=== PATIENT | male | born 1995 | race Hispanic/Latino ===

== ENCOUNTER 2018-09-22 10:39 | Emergency (ER) | payer BC ==
[2018-09-22] MEDS ORDERED: MAGNE/ALUM HYDROXD 30 ML UCUP ONE (13:09)
[2018-09-22] MEDS ORDERED: KETOROLAC 30 MG/ML INJ ONE (13:09)
[2018-09-22] MEDS ORDERED: LIDOCAINE VISCOUS 2% SOLN 15 ML UDC ONE (13:09)
[2018-09-22] MEDS ORDERED: PEN G BENZ LA 2.4 MU/4 ML SYRINGE IM ONE (13:14)
--- NOTE | 2018-09-22 13:40 | ER ---
Nurse's Notes [facility] Name: Raz Reeves Age: 23 yrs Sex: Male : 1995 Arrival Date: 09/22/2018 Time: 10:46 Bed 11 Private MD: Diagnosis: Streptococcal pharyngitis Presentation: 09/22 11:03 Presenting complaint: Patient states: Swollen tonsils, sore throat for the past 2 days aj1 Patient states "I know my tonsils need to be removed but now its affecting my ears". Transition of care: patient was not received from another setting of care. Onset of symptoms was September 20, 2018. Risk Assessment: Do you want to hurt yourself or someone else? Patient reports no desire to harm self or others. Initial Sepsis Screen: Does the patient meet any 2 criteria? No. Patient's initial sepsis screen is negative. Does the patient have a suspected source of infection? No. Patient's initial sepsis screen is negative. Care prior to arrival: None. 11:03 Method Of Arrival: Ambulatory aj1 11:03 Acuity: MUKESH 4 aj1 Triage Assessment: 11:06 General: Appears in no apparent distress. uncomfortable, Behavior is calm, cooperative, aj1 appropriate for age. Pain: Complains of pain in left aspect of posterior pharynx and right aspect of posterior pharynx Pain currently is 6 out of 10 on a pain scale. EENT: Throat is reddened has enlarged tonsils bilaterally. Neuro: Level of Consciousness is awake, alert, obeys commands. Cardiovascular: Patient's skin is warm and dry. Respiratory: Airway is patent Respiratory effort is even, unlabored, Respiratory pattern is regular, symmetrical, Denies shortness of breath. Historical: - Allergies: 11:06 No Known Allergies; aj1 - Home Meds: 11:06 None [Active]; aj1 - PMHx: 11:06 None; aj1 - PSHx: 11:06 None; aj1 - Immunization history:: Flu vaccine is not up to date. - Social history:: Smoking status: Patient/guardian denies using tobacco. - Ebola Screening: : Patient denies travel to an Ebola-affected area in the 21 days before illness onset. Screenin:37 Abuse screen: Denies threats or abuse. Denies injuries from another. Nutritional aj1 screening: No deficits noted. Tuberculosis screening: No symptoms or risk factors identified. 13:51 Fall Risk None identified. hb Assessment: 12:37 General: Appears in no apparent distress. uncomfortable, Behavior is calm, cooperative, aj1 appropriate for age. Pain: Complains of pain in right aspect of posterior pharynx and left aspect of posterior pharynx. Neuro: Level of Consciousness is awake, alert, obeys commands. Cardiovascular: Patient's skin is warm and dry. Respiratory: Airway is patent Respiratory effort is even, unlabored, Respiratory pattern is regular, symmetrical, Breath sounds are clear bilaterally. Denies shortness of breath. GI: No signs and/or symptoms were reported involving the gastrointestinal system. : No signs and/or symptoms were reported regarding the genitourinary system. EENT: Throat has patchy exudate has enlarged tonsils. Derm: No signs and/or symptoms reported regarding the dermatologic system. Skin is pink, warm \\T\\ dry. normal. Musculoskeletal: No signs and/or symptoms reported regarding the musculoskeletal system. Circulation, motion, and sensation intact. 13:18 Reassessment: Patient appears in no apparent distress at this time. No changes from hb previously documented assessment. Patient and/or family updated on plan of care and expected duration. Pain level reassessed. Patient is alert, oriented x 3, equal unlabored respirations, skin warm/dry/pink. Vital Signs: 11:06 BP 133 / 53; Pulse 79; Resp 16; Temp 97.8; Pulse Ox 98% on R/A; Weight 122.47 kg (R); aj1 Height 6 ft. 1 in. (185.42 cm) (R); Pain 6/10; 11:06 Body Mass Index 35.62 (122.47 kg, 185.42 cm) aj1 ED Course: 10:46 Patient arrived in ED. mr 11:05 Triage completed. aj1 11:06 Donna Burch FNP-C [facility]. kb 11:06 Patrick Mena MD is Attending Physician. kb 11:06 Arm band placed on Patient placed in waiting room, Patient notified of wait time. aj1 12:37 Patient has correct armband on for positive identification. Call light in reach. aj1 12:37 No provider procedures requiring assistance completed. aj1 13:51 Patient did not have IV access during this emergency room visit. hb Administered Medications: 13:11 Drug: GI Cocktail without - (Maalox Suspension 30 ml, Lidocaine Liquid 2 % 15 hb ml) Route: PO; 13:11 Drug: TORadol 60 mg Route: IM; Site: right deltoid; hb 13:11 Drug: Bicillin L-A 2.4 million units Route: IM; Site: right ventrogluteal; hb Outcome: 13:39 Discharge ordered by MD. payne 13:50 Discharged to home ambulatory. hb 13:50 Condition: stable 13:50 Discharge instructions given to patient, Instructed on discharge instructions, follow up and referral plans. medication usage, Demonstrated understanding of instructions, follow-up care, medications. 13:51 Patient left the ED. hb Signatures: Donna Burch, STRAIGHTENER AND ALIGNER-C STRAIGHTENER AND ALIGNER-Bambi Prabhakar, RN RN aj1 Bhavani Amado mr Kathie Mathew RN RN hb
--- NOTE | 2018-09-22 13:40 | EDPHYS ---
Physician Documentation [facility] Name: Raz Reeves Age: 23 yrs Sex: Male : 1995 Arrival Date: 09/22/2018 Time: 10:46 Bed 11 Private MD: ED Physician Patrick Mena HPI: 09/22 13:36 This 23 yrs old Male presents to ER via Ambulatory with complaints of Sore kb Throat, Fever. 13:36 The patient presents with sore throat. The patient describes throat pain as constant. kb Onset: The symptoms/episode began/occurred yesterday, and became worse today. Severity of symptoms: At their worst the symptoms were moderate, in the emergency department the symptoms are unchanged. Modifying factors: The symptoms are alleviated by nothing, the symptoms are aggravated by swallowing, Patient's oral intake status: limited fluid intake, limited food intake, unaware of sick contact. Associated signs and symptoms: Pertinent positives: fever, Sore throat. The patient has experienced similar episodes in the past. The patient has not recently seen a physician. Historical: - Allergies: 11:06 No Known Allergies; aj1 - Home Meds: 11:06 None [Active]; aj1 - PMHx: 11:06 None; aj1 - PSHx: 11:06 None; aj1 - Immunization history:: Flu vaccine is not up to date. - Social history:: Smoking status: Patient/guardian denies using tobacco. - Ebola Screening: : Patient denies travel to an Ebola-affected area in the 21 days before illness onset. ROS: 13:34 Neck: Negative for injury, pain, and swelling, Cardiovascular: Negative for chest pain, kb palpitations, and edema, Respiratory: Negative for shortness of breath, cough, wheezing, and pleuritic chest pain, Abdomen/GI: Negative for abdominal pain, nausea, vomiting, diarrhea, and constipation, : Negative for injury, bleeding, discharge, and swelling, MS/Extremity: Negative for injury and deformity, Skin: Negative for injury, rash, and discoloration, Neuro: Negative for headache, weakness, numbness, tingling, and seizure. 13:34 Constitutional: Positive for fever, malaise, Negative for body aches, chills, fatigue, poor PO intake, weight loss. 13:34 ENT: Positive for sore throat. Exam: 13:34 Constitutional: This is a well developed, well nourished patient who is awake, alert, kb and in no acute distress. Head/Face: Normocephalic, atraumatic. Chest/axilla: Normal chest wall appearance and motion. Nontender with no deformity. No lesions are appreciated. Cardiovascular: Regular rate and rhythm with a normal S1 and S2. No gallops, murmurs, or rubs. Normal PMI, no JVD. No pulse deficits. Respiratory: Lungs have equal breath sounds bilaterally, clear to auscultation and percussion. No rales, rhonchi or wheezes noted. No increased work of breathing, no retractions or nasal flaring. Abdomen/GI: Soft, non-tender, with normal bowel sounds. No distension or tympany. No guarding or rebound. No evidence of tenderness throughout. Skin: Warm, dry with normal turgor. Normal color with no rashes, no lesions, and no evidence of cellulitis. MS/ Extremity: Pulses equal, no cyanosis. Neurovascular intact. Full, normal range of motion. Neuro: Awake and alert, GCS 15, oriented to person, place, time, and situation. Cranial nerves II-XII grossly intact. Motor strength 5/5 in all extremities. Sensory grossly intact. Cerebellar exam normal. Normal gait. 13:34 ENT: External ear(s): are unremarkable, Ear canal(s): are normal, TM's: are normal, Posterior pharynx: Airway: normal, no evidence of obstruction, Tonsils: bilaterally enlarged, with erythema, with exudate, Uvula: normal, midline, swelling, that is moderate, erythema, that is moderate, exudate, that is moderate. Vital Signs: 11:06 BP 133 / 53; Pulse 79; Resp 16; Temp 97.8; Pulse Ox 98% on R/A; Weight 122.47 kg (R); aj1 Height 6 ft. 1 in. (185.42 cm) (R); Pain 6/10; 11:06 Body Mass Index 35.62 (122.47 kg, 185.42 cm) aj1 MDM: 12:25 Patient medically screened. kb 13:35 Data reviewed: vital signs, nurses notes. Data interpreted: Pulse oximetry: on room air kb is 98 %. Interpretation: normal. Counseling: I had a detailed discussion with the patient and/or guardian regarding: the historical points, exam findings, and any diagnostic results supporting the discharge/admit diagnosis, lab results, the need for outpatient follow up, a family practitioner, to return to the emergency department if symptoms worsen or persist or if there are any questions or concerns that arise at home. 09/22 11:08 Order name: Strep; Complete Time: 13:26 aj1 Administered Medications: 13:11 Drug: GI Cocktail without - (Maalox Suspension 30 ml, Lidocaine Liquid 2 % 15 hb ml) Route: PO; 13:11 Drug: TORadol 60 mg Route: IM; Site: right deltoid; hb 13:11 Drug: Bicillin L-A 2.4 million units Route: IM; Site: right ventrogluteal; hb Disposition: 16:11 Co-signature as Attending Physician, Patrick Mena MD I agree with the assessment and kdr plan of care. Disposition: 09/22/18 13:39 Discharged to Home. Impression: Streptococcal pharyngitis. - Condition is Stable. - Discharge Instructions: Strep Throat, [id number]. - Medication Reconciliation Form, Thank You Letter, Antibiotic Education, Prescription Opioid Use form. - Follow up: Emergency Department; When: As needed; Reason: Worsening of condition. Follow up: Private Physician; When: 2 - 3 days; Reason: Recheck today's complaints, Continuance of care, Re-evaluation by your physician. Signatures: Dispatcher [employer] [facility] Donna Burch, Bambi Garcia RN RN aj1 Patrick Mena MD MD [facility] Kathie Mathew RN RN Corrections: (The following items were deleted from the chart) 13:25 13:25 Group A Streptococcus Rapid Sc ordered. [facility] 13:51 13:39 09/22/2018 13:39 Discharged to Home. Impression: Streptococcal pharyngitis. hb Condition is Stable. Forms are Medication Reconciliation Form, Thank You Letter, Antibiotic Education, Prescription Opioid Use. Follow up: Emergency Department; When: As needed; Reason: Worsening of condition. Follow up: Private Physician; When: 2 - 3 days; Reason: Recheck today's complaints, Continuance of care, Re-evaluation by your physician. kb
== END 2018-09-22 13:51 | disposition home or self-care (01) ==
LOC: ER 10:39
DX: J02.0 Streptococcal pharyngitis (principal)
CPT/HCPCS: 87081; 96372; 99283; J0561

== ENCOUNTER 2019-06-22 20:51 | Emergency (ER) | payer BC ==
[2019-06-22] MEDS ORDERED: HYDROCODONE/APAP 5/325 MG TAB ONE (21:23)
[2019-06-22] MEDS ORDERED: PROMETHAZINE 25 MG TABLET ONE (21:24)
--- NOTE | 2019-06-22 21:54 | EDPHYS ---
Physician Documentation [facility] Name: Raz Reeves Age: 24 yrs Sex: Male : 1995 Arrival Date: 06/22/2019 Time: 20:55 Bed 28 Private MD: ED Physician Cody Burrell HPI: 06/22 21:22 This 24 yrs old Male presents to ER via Wheelchair with complaints of Ankle snw Injury. 21:22 The patient presents with decreased range of motion, an injury, pain, swelling, snw tenderness. The complaints affect the right ankle. Context: The problem was sustained outdoors, resulted from a mis-step by the patient, missed three steps, The mechanism of injury involved inversion of the affected ankle. The patient is unable to bear weight. Associated signs and symptoms: Pertinent positives: swelling, heard crack. Severity of symptoms: At their worst the symptoms were moderate. The patient has not experienced similar symptoms in the past. The patient has not recently seen a physician. Historical: - Allergies: 21:10 No Known Allergies; mg2 - Home Meds: 21:10 Amoxicillin Oral [Active]; mg2 - PMHx: 21:10 None; mg2 - PSHx: 21:10 None; mg2 - Immunization history:: Adult Immunizations up to date. - Social history:: Smoking status: Patient/guardian denies using tobacco. - Ebola Screening: : Patient negative for fever greater than or equal to 101.5 degrees Fahrenheit, and additional compatible Ebola Virus Disease symptoms Patient denies exposure to infectious person Patient denies travel to an Ebola-affected area in the 21 days before illness onset No symptoms or risks identified at this time. ROS: 21:21 Constitutional: Negative for fever, chills, and weight loss, Eyes: Negative for injury, snw pain, redness, and discharge, ENT: Negative for injury, pain, and discharge, Neck: Negative for injury, pain, and swelling, Cardiovascular: Negative for chest pain, palpitations, and edema, Respiratory: Negative for shortness of breath, cough, wheezing, and pleuritic chest pain, Abdomen/GI: Negative for abdominal pain, nausea, vomiting, diarrhea, and constipation, Back: Negative for injury and pain, : Negative for injury, bleeding, discharge, and swelling, Skin: Negative for injury, rash, and discoloration, Neuro: Negative for headache, weakness, numbness, tingling, and seizure, Psych: Negative for depression, anxiety, suicide ideation, homicidal ideation, and hallucinations. 21:21 MS/extremity: Positive for injury or acute deformity, decreased range of motion, pain, swelling, tenderness, of the right lateral malleolus. Exam: 21:20 Constitutional: This is a well developed, well nourished patient who is awake, alert, snw and in no acute distress. Head/Face: Normocephalic, atraumatic. Eyes: Pupils equal round and reactive to light, extra-ocular motions intact. Lids and lashes normal. Conjunctiva and sclera are non-icteric and not injected. Cornea within normal limits. Periorbital areas with no swelling, redness, or edema. ENT: Nares patent. No nasal discharge, no septal abnormalities noted. Tympanic membranes are normal and external auditory canals are clear. Oropharynx with no redness, swelling, or masses, exudates, or evidence of obstruction, uvula midline. Mucous membranes moist. Neck: Trachea midline, no thyromegaly or masses palpated, and no cervical lymphadenopathy. Supple, full range of motion without nuchal rigidity, or vertebral point tenderness. No Meningismus. Chest/axilla: Normal chest wall appearance and motion. Nontender with no deformity. No lesions are appreciated. Cardiovascular: Regular rate and rhythm with a normal S1 and S2. No gallops, murmurs, or rubs. Normal PMI, no JVD. No pulse deficits. Respiratory: Lungs have equal breath sounds bilaterally, clear to auscultation and percussion. No rales, rhonchi or wheezes noted. No increased work of breathing, no retractions or nasal flaring. Abdomen/GI: Soft, non-tender, with normal bowel sounds. No distension or tympany. No guarding or rebound. No evidence of tenderness throughout. Back: No spinal tenderness. No costovertebral tenderness. Full range of motion. Skin: Warm, dry with normal turgor. Normal color with no rashes, no lesions, and no evidence of cellulitis. Neuro: Awake and alert, GCS 15, oriented to person, place, time, and situation. Cranial nerves II-XII grossly intact. Motor strength 5/5 in all extremities. Sensory grossly intact. Cerebellar exam normal. Normal gait. Psych: Awake, alert, with orientation to person, place and time. Behavior, mood, and affect are within normal limits. 21:20 Musculoskeletal/extremity: Extremities: grossly normal except: noted in the right lateral malleolus: decreased ROM, swelling, tenderness, Circulation is intact in all extremities. Sensation intact. Vital Signs: 21:10 BP 163 / 85; Pulse 75; Resp 16 S; Temp 99.2(O); Pulse Ox 99% on R/A; Weight 108.86 kg mg2 (R); Height 6 ft. 1 in. (185.42 cm) (R); Pain 6/10; 21:10 Body Mass Index 31.66 (108.86 kg, 185.42 cm) mg2 MDM: 21:02 Patient medically screened. [facility] 21:55 Data reviewed: vital signs, nurses notes. Data interpreted: Pulse oximetry: on room air snw is 99 %. Interpretation: normal. Counseling: I had a detailed discussion with the patient and/or guardian regarding: the historical points, exam findings, and any diagnostic results supporting the discharge/admit diagnosis, the presence of at least one elevated blood pressure reading (>120/80) during this emergency department visit, radiology results, the need for outpatient follow up, to return to the emergency department if symptoms worsen or persist or if there are any questions or concerns that arise at home. Special discussion: Based on the patient's history, exam and DX evaluation, there is no indication for emergent intervention or inpatient TX. It is understood by the patient/guardian that if the SXs persist or worsen they need to return immediately for re-evaluation. Based on the history and exam findings, there is no indication for further emergent testing or inpatient evaluation. I discussed with the patient/guardian the need to see the orthopedic surgeon for further evaluation of the symptoms. 06/22 21:10 Order name: Ankle Right 3 View XRAY snw 06/22 21:16 Order name: Ice pack; Complete Time: : snw 06/22 21:55 Order name: Walking boot snw Administered Medications: : Drug: Phenergan 25 mg Route: PO; tr5 22:09 Follow up: Response: Nausea is decreased tr5 21:30 Drug: [place] (7.5 mg-325 mg) 1 tabs {Note: RASS:0.} Route: PO; tr5 22:09 Follow up: Response: Pain is decreased; RASS: Alert and Calm (0) tr5 22:25 Drug: fentaNYL (PF) 25 mcg {Note: RASS:0.} Route: IM; Site: left ventrogluteal; tr5 22:25 Drug: Motrin 600 mg Route: PO; tr5 Disposition: 06/23 04:21 Co-signature as Attending Physician, Cody Burrell MD I agree with the assessment and jhoan plan of care. Disposition: 06/22/19 21:53 Discharged to Home. Impression: Sprain of ankle, Avulsion fracture of distal fibula, Superficial injury of head. - Condition is Stable. - Discharge Instructions: Ankle Sprain, Fibular Ankle Fracture Treated With or Without Immobilization, Adult, Head Injury, Adult, Cryotherapy, Walking Boot. - Prescriptions for Diclofenac Sodium 75 mg Oral Tablet Sustained Release - take 1 tablet by ORAL route 2 times per day; 30 tablet. orphenadrine citrate 100 mg Oral Tablet Sustained Release - take 1 tablet by ORAL route 2 times per day As needed; 20 tablet. - Work release form, Medication Reconciliation Form, Thank You Letter, Antibiotic Education, Prescription Opioid Use form. - Follow up: Joel Kelley MD; When: 2 - 3 days; Reason: Recheck today's complaints, Continuance of care. Signatures: Dispatcher [employer] EDCody Vasquez MD MD cha Therrien, Shelly, INTENSIVE CARE MEDICINE SPECIALIST-C INTENSIVE CARE MEDICINE SPECIALIST-Csnw Cyrus Burris RN RN mg2 Rodriguez, Tommie, RN RN tr5 Corrections: (The following items were deleted from the chart) 06/22 21:54 21:51 Crutches ordered. snw snw 21:54 21:51 Crutches ordered. snw snw 21:55 21:51 Splint - Ankle: Orthoglass: Posterior ordered. snw snw 22:04 21:53 06/22/2019 21:53 Discharged to Home. Impression: Sprain of ankle; Avulsion snw fracture of distal fibula. Condition is Stable. Forms are Medication Reconciliation Form, Thank You Letter, Antibiotic Education, Prescription Opioid Use. Follow up: Joel Kelley; When: 2 - 3 days; Reason: Recheck today's complaints, Continuance of care. snw 22:27 22:04 06/22/2019 21:53 Discharged to Home. Impression: Sprain of ankle; Avulsion tr5 fracture of distal fibula; Superficial injury of head. Condition is Stable. Discharge Instructions: Ankle Sprain, Fibular Ankle Fracture Treated With or Without Immobilization, Adult, Head Injury, Adult, Cryotherapy, Walking Boot. Prescriptions for Diclofenac Sodium 75 mg Oral Tablet Sustained Release - take 1 tablet by ORAL route 2 times per day; 30 tablet, orphenadrine citrate 100 mg Oral Tablet Sustained Release - take 1 tablet by ORAL route 2 times per day As needed; 20 tablet. and Forms are Medication Reconciliation Form, Thank You Letter, Antibiotic Education, Prescription Opioid Use, Work release form. Follow up: Joel Kelley; When: 2 - 3 days; Reason: Recheck today's complaints, Continuance of care. snw
--- NOTE | 2019-06-22 21:54 | ER ---
Nurse's Notes [facility] Name: Raz Reeves Age: 24 yrs Sex: Male : 1995 Arrival Date: 06/22/2019 Time: 20:55 Bed 28 Private MD: Diagnosis: Sprain of ankle;Avulsion fracture of distal fibula;Superficial injury of head Presentation: 06/22 21:07 Presenting complaint: Patient states: fell 3 steps down, twisted ankle and heard a mg2 crack. R ankle swollen. Transition of care: patient was not received from another setting of care. Onset of symptoms was June 22, 2019. Risk Assessment: Do you want to hurt yourself or someone else? Patient reports no desire to harm self or others. Initial Sepsis Screen: Does the patient meet any 2 criteria? No. Patient's initial sepsis screen is negative. Does the patient have a suspected source of infection? No. Patient's initial sepsis screen is negative. Care prior to arrival: None. 21:07 Method Of Arrival: Wheelchair mg2 21:07 Acuity: MUKESH 4 mg2 Triage Assessment: 21:10 General: Appears in no apparent distress. comfortable, Behavior is calm, cooperative, mg2 appropriate for age. Pain: Complains of pain in right lateral malleolus Pain currently is 6 out of 10 on a pain scale. Musculoskeletal: Circulation, motion, and sensation intact. Capillary refill < 3 seconds, Range of motion: limited in right ankle Swelling present in right lateral malleolus. Historical: - Allergies: 21:10 No Known Allergies; mg2 - Home Meds: 21:10 Amoxicillin Oral [Active]; mg2 - PMHx: 21:10 None; mg2 - PSHx: 21:10 None; mg2 - Immunization history:: Adult Immunizations up to date. - Social history:: Smoking status: Patient/guardian denies using tobacco. - Ebola Screening: : Patient negative for fever greater than or equal to 101.5 degrees Fahrenheit, and additional compatible Ebola Virus Disease symptoms Patient denies exposure to infectious person Patient denies travel to an Ebola-affected area in the 21 days before illness onset No symptoms or risks identified at this time. Screenin:15 Abuse screen: Denies threats or abuse. Nutritional screening: No deficits noted. tr5 Tuberculosis screening: No symptoms or risk factors identified. Fall Risk None identified. Assessment: 21:15 General: Appears uncomfortable, Behavior is calm, cooperative, appropriate for age. tr5 Pain: Complains of pain in right foot. Neuro: Level of Consciousness is awake, alert, obeys commands, Oriented to person, place, time, Application Helper are equal bilaterally. Cardiovascular: Heart tones present Capillary refill < 3 seconds Pulses are all present. Edema is 2+ to right ankle and right foot. Respiratory: Airway is patent Respiratory effort is even, unlabored, Respiratory pattern is regular, symmetrical. GI: No signs and/or symptoms were reported involving the gastrointestinal system. : No signs and/or symptoms were reported regarding the genitourinary system. EENT: No signs and/or symptoms were reported regarding the EENT system. Derm: No signs and/or symptoms reported regarding the dermatologic system. Musculoskeletal: No signs and/or symptoms reported regarding the musculoskeletal system. Vital Signs: 21:10 BP 163 / 85; Pulse 75; Resp 16 S; Temp 99.2(O); Pulse Ox 99% on R/A; Weight 108.86 kg mg2 (R); Height 6 ft. 1 in. (185.42 cm) (R); Pain 6/10; 21:10 Body Mass Index 31.66 (108.86 kg, 185.42 cm) mg2 ED Course: 20:55 Patient arrived in ED. cl3 20:57 Zar[facility]-C [facility]. snw 20:57 Cody Burrell MD is Attending Physician. snw 21:01 Flex Slade, RN is Primary Nurse. tr5 21:09 Triage completed. mg2 21:10 Arm band placed on right wrist. mg2 21:12 Affected limb iced. Affected limb elevated. mg2 21:15 Bed in low position. Call light in reach. Side rails up X 1. tr5 21:50 Ankle Right 3 View XRAY In Process Unspecified. EDMS 21:52 Joel Kelley MD is Referral Physician. snw 22:26 No provider procedures requiring assistance completed. Patient did not have IV access tr5 during this emergency room visit. Administered Medications: 21:26 Drug: Phenergan 25 mg Route: PO; tr5 22:09 Follow up: Response: Nausea is decreased tr5 21:30 Drug: Jennings (7.5 mg-325 mg) 1 tabs {Note: RASS:0.} Route: PO; tr5 22:09 Follow up: Response: Pain is decreased; RASS: Alert and Calm (0) tr5 22:25 Drug: fentaNYL (PF) 25 mcg {Note: RASS:0.} Route: IM; Site: left ventrogluteal; tr5 22:25 Drug: Motrin 600 mg Route: PO; tr5 Outcome: 21:53 Discharge ordered by MD. fernandez 22:26 Discharged to home ambulatory. tr5 22: Condition: stable 22:26 Discharge instructions given to patient, family, Instructed on discharge instructions, follow up and referral plans. medication usage, Demonstrated understanding of instructions, follow-up care, medications, Prescriptions given X 2. 22:27 Patient left the ED. tr5 Signatures: Dispatcher [employer] EDMS Zarina Rivera, BOTTOM WORKER-C BOTTOM WORKER-Csnw Cyrus Burris RN RN mg2 Flex Slade RN RN tr5 Flavio Harper cl3
[2019-06-22] MEDS ORDERED: IBUPROFEN 400 MG TAB ONE (22:20)
[2019-06-22] MEDS ORDERED: IBUPROFEN 200 MG TAB PO ONE (22:20)
[2019-06-22 22:42] VITALS: BP 163/85; TEMP 99.2; O2SAT 99
--- NOTE | 2019-06-23 09:41 | RAD REPORT ---
EXAM DESCRIPTION: RAD - Ankle Right 3 View - 06/22/2019 9:50 pm CLINICAL HISTORY: Right ankle pain status post fall FINDINGS: 1 centimeter bony density lies adjacent to the lateral aspect of the talus. Most likely th is represents an acute avulsion fracture from either the talus or lateral malleolus. Soft tissue swel ling laterally. No dislocation
== END 2019-06-22 22:27 | disposition home or self-care (01) ==
LOC: ER 20:51
DX: S82.401A Unspecified fracture of shaft of right fibula, initial encounter for closed fracture (principal); S93.401A Sprain of unspecified ligament of right ankle, initial encounter; S00.90XA Unspecified superficial injury of unspecified part of head, initial encounter; W10.9XXA Fall (on) (from) unspecified stairs and steps, initial encounter; Y93.9 Activity, unspecified; Y92.9 Unspecified place or not applicable
CPT/HCPCS: 96372; 99283; Q0169

== ENCOUNTER 2022-10-16 15:12 | Inpatient (IN) | payer OTHER ==
--- OUTSIDE RECORDS SUMMARY | 2022-10-16 15:15 | XMS REPORT | Continuity of Care Document ---
:1995 Author Organization [facility] t Address [address] [place] [address] Dr. Shaw [address] [place] [id number] Care Team Providers Name Role Phone JEFFERY SINGH Attending Clinician Unavailable Payers Payer Name Policy Type Policy Number Effective Date Expiration Date S nitin [employer] CHOICE POS II [id number] 2022 00:00:00 [employer]UE [employer]ENTIALS [id number] 2019 00:00:00 Problems This patient has no known problems. Allergies, Adverse Reactions, Alerts Allergy Allergy Status Severity Reaction(s) Onset Inactive Treating Comm ents Source Name Type Date Date Clinician NO KNOWN Drug Active [facility] ALLERGIE Class ity [facility] Medications This patient has no known medications. Procedures This patient has no known procedures. Encounters Start End Encounter Admission Attending Care Care Encounter Source Date/Time Date/Time Type Type Clinicians Facility Department ID 2022-10-01 Outpatient [facility] [id number] Common 12:10:01 [id number] [facility] 2022-06-30 Outpatient [facility] [id number] NM 10:17:35 [id number] Health 2021-06-20 Emergency [facility] [id number] Univers 23:30:54 ity [facility] 2021-06-20 Emergency [facility] [id number] Univers 22:59:12 [facility] 2020-09-26 2020-09-26 Outpatient Leobardo SINGH [facility] [id number] Univers 09:00:00 09:00:00 JEFFERY [facility] Results This patient has no known results.
[2022-10-16] MEDS ORDERED: ACETAMINOPHEN 500 MG TAB ONE ×2 (15:30→19:55)
[2022-10-16 15:53] LABS: Absolute Lymphocytes (CBC) 0.4 K/uL (0.7-4.9); Hematocrit 38.9 % (39.6-49.0); Lymphocytes % 7.4 % (15.3-44.8); MCV 87.3 fL (80-100); MPV 9.4 fL (7.6-11.3); RBC Red Blood Cell Count 4.46 M/uL (4.33-5.43)
[2022-10-16] MEDS ORDERED: NA CHLORIDE 0.9% 1,000 ML ONE ×2 (15:54→19:16)
[2022-10-16] MEDS ORDERED: ONDANSETRON 4 MG/2 ML VIAL ONE ×2 (15:54→19:56)
[2022-10-16 16:00] LABS: Protime INR 1.2
[2022-10-16 16:11] LABS: Albumin 4.3 g/dL (3.4-5.0); Bilirubin Total 0.9 mg/dL (0.2-1.0); Potassium 3.6 mmol/L (3.5-5.1); Protein, Total 7.7 g/dL (6.4-8.2)
--- NOTE | 2022-10-16 16:36 | RAD REPORT ---
EXAM DESCRIPTION: CTAbdomen Pelvis W Contrast - 10/16/2022 4:27 pm CLINICAL HISTORY: ABD PAIN COMPARISON: No comparisons TECHNIQUE: CT of the abdomen and pelvis was performed with IV contrast. All CT scans are performed using dose optimization technique as appropriate and may include automated exposure control or mA/KV adjustment according to patient size. FINDINGS: Lower chest: No acute abnormality. Liver: No acute abnormality or suspicious lesions. Biliary: No biliary ductal dilatation. Stomach: Partial gastrectomy. Duodenum: No significant focal abnormality. Pancreas: No significant abnormality. Spleen: No significant abnormality. Adrenal: No suspicious lesions. Kidney/ureter: No hydronephrosis. No renal calculi. Retroperitoneum: No retroperitoneal adenopathy. Vascular: No aneurysm. Bowel: Diffuse moderate colonic wall thickening.. No appendicitis. No bowel obstruction. Peritoneum: No ascites or free air. Bladder: Grossly unremarkable. Reproductive: No adnexal masses. Bones: No acute fracture. Other: n/a IMPRESSION: Pancolitis with differential to include infectious and inflammatory etiologies. No bowel obstruction. No appendicitis.
[2022-10-16 16:45] LABS: SARS-COV-2 RT PCR NEGATIVE (NEGATIVE)
--- NOTE | 2022-10-16 16:50 | ER ---
Nurse's Notes [facility] Name: Raz Reeves Age: 27 yrs Sex: Male : 1995 Arrival Date: 10/16/2022 Time: 15:14 Bed 19 Private MD: Diagnosis: Pancolitis Presentation: 10/16 15:16 Chief complaint: N/V/D, lower abdominal pain, and headache since yesterday. Coronavirus hb screen: Client presents with at least one sign or symptom that may indicate coronavirus-19. Standard/surgical mask placed on the client. Provider contacted for isolation considerations. Ebola Screen: No symptoms or risks identified at this time. Initial Sepsis Screen: Does the patient meet any 2 criteria? No. Patient's initial sepsis screen is negative. Does the patient have a suspected source of infection? No. Patient's initial sepsis screen is negative. Risk Assessment: Do you want to hurt yourself or someone else? Patient reports no desire to harm self or others. Onset of symptoms was October 15, 2022. 15:16 Method Of Arrival: Ambulatory hb 15:16 Acuity: MUKESH 2 hb Historical: - Allergies: 15:18 No Known Allergies; hb - Immunization history:: Adult Immunizations unknown. - Social history:: Smoking status: unknown. Screenin:30 [facility] ED Fall Risk Assessment (Adult) Score/Fall Risk Level 0 - 2 = Low Risk. Abuse eh3 screen: Denies threats or abuse. Denies injuries from another. Nutritional screening: No deficits noted. Tuberculosis screening: No symptoms or risk factors identified. Assessment: 15:30 General: Appears in no apparent distress. uncomfortable, Behavior is calm, cooperative, eh3 appropriate for age. Pain: Complains of pain in left lower quadrant and left upper quadrant. Pain: Also complains of nausea. Neuro: Level of Consciousness is awake, alert, obeys commands, Oriented to person, place, time, situation. Cardiovascular: Capillary refill < 3 seconds Patient's skin is warm and dry. Respiratory: Airway is patent Respiratory effort is even, unlabored, Respiratory pattern is regular, symmetrical. GI: Abdomen is round non-distended, Reports diarrhea, intolerance of fluids, intolerance of food, nausea, vomiting. : No signs and/or symptoms were reported regarding the genitourinary system. EENT: No signs and/or symptoms were reported regarding the EENT system. Derm: No signs and/or symptoms reported regarding the dermatologic system. Skin is pink, warm \T\ dry. Musculoskeletal: No signs and/or symptoms reported regarding the musculoskeletal system. Circulation, motion, and sensation intact. Range of motion: intact in all extremities. 16:30 Reassessment: Patient appears in no apparent distress at this time. Patient and/or 3 family updated on plan of care and expected duration. Pain level reassessed. Patient is alert, oriented x 3, equal unlabored respirations, skin warm/dry/pink. 17:30 Reassessment: Patient appears in no apparent distress at this time. Patient and/or 3 family updated on plan of care and expected duration. Pain level reassessed. Patient is alert, oriented x 3, equal unlabored respirations, skin warm/dry/pink. 18:30 Reassessment: Patient appears in no apparent distress at this time. Patient and/or 3 family updated on plan of care and expected duration. Pain level reassessed. Patient is alert, oriented x 3, equal unlabored respirations, skin warm/dry/pink. 19:16 Reassessment: Patient and/or family updated on plan of care and expected duration. Pain ha1 level reassessed. Patient is alert, oriented x 3, equal unlabored respirations, skin warm/dry/pink. Pain: Complains of pain in left lower quadrant Pain currently is 8 out of 10 on a pain scale. Quality of pain is described as throbbing, Is intermittent, Alleviated by medications. Vital Signs: 15:16 BP 119 / 52; Pulse 107; Resp 24; Temp 101.2(TE); Pulse Ox 100% on R/A; Weight 97.52 kg; hb Height 6 ft. 1 in. (185.42 cm); Pain 8/10; 15:30 BP 104 / 48; Pulse 91; Resp 18; Pulse Ox 99% on R/A; eh3 16:30 BP 102 / 51; Pulse 92; Resp 18; Pulse Ox 99% on R/A; eh3 16:46 Temp 98.8(O); eh3 17:30 BP 99 / 43; Pulse 86; Resp 15; Pulse Ox 100% on R/A; eh3 18:30 BP 93 / 42; Pulse 70; Resp 19; Pulse Ox 98% on R/A; eh3 19:17 BP 92 / 36; Pulse 74; Resp 18 S; Pulse Ox 98% on R/A; ha1 15:16 Body Mass Index 28.36 (97.52 kg, 185.42 cm) hb ED Course: 15:14 Patient arrived in ED. mr 15:18 Triage completed. hb 15:18 [facility]-C [facility]. kb 15:18 Cody Burrell MD is Attending Physician. kb 15:18 Arm band placed on. hb 15:30 Patient has correct armband on for positive identification. Bed in low position. Call 3 light in reach. Side rails up X2. Client placed on continuous cardiac and pulse oximetry monitoring. NIBP monitoring applied. Door closed. Noise minimized. Lights dimmed. 15:44 First set of blood cultures drawn by me. aa5 15:45 Initial lab(s) drawn, by me, sent to lab. Inserted saline lock: 18 gauge in right aa5 antecubital area, using aseptic technique. Blood collected. 15:58 Second set of blood cultures drawn by me. aa5 16:02 COVID swab sent to lab. Flu and/or RSV swab sent to lab. aa5 16:10 Jeanne Browning, RN is Primary Nurse. eh3 16:33 CT Abd/Pelvis - IV Contrast Only In Process Unspecified. EDMS 16:50 Eliseo Feldman is Hospitalizing Provider. kb 16:50 Benjie Feldman MD is Hospitalizing Provider. kb 18:47 No provider procedures requiring assistance completed. Patient admitted, IV remains in eh3 place. Administered Medications: 15:23 CANCELLED (Other Intervention Used): Motrin (ibuprofen) 800 mg PO once kb 15:46 Drug: Tylenol 1000 mg Route: PO; aa5 16:46 Follow up: Temp 98.8 Oral; Response: Temperature is decreased eh3 15:50 Drug: NS 0.9% 1000 ml Route: IV; Rate: 1000 ml; Site: right antecubital; aa5 17:11 Follow up: IV Status: Completed infusion; IV Intake: 1000ml eh3 15:50 Drug: Zofran (Ondansetron) 4 mg Route: IVP; Site: right antecubital; aa5 16:46 Follow up: Response: Nausea is decreased eh3 17:05 Drug: Flagyl (metroNIDAZOLE) 500 mg Volume: 100 ml; Route: IVPB; Rate: 200 ml/hr; eh3 Infused Over: 30 mins; Site: right antecubital; 18:30 Follow up: Response: No adverse reaction; IV Status: Completed infusion; IV Intake: eh3 100ml 17:05 Drug: Ketorolac 15 mg Route: IVP; Site: right antecubital; eh3 18:00 Follow up: Response: Pain is unchanged, physician notified eh3 17:15 Drug: Cipro (ciprofloxacin) 400 mg Volume: 200 ml; Route: IVPB; Infused Over: 60 mins; eh3 Site: right antecubital; 18:30 Follow up: Response: No adverse reaction; IV Status: Completed infusion; IV Intake: eh3 200ml 17:15 Drug: NS 0.9% 1000 ml Route: IV; Rate: 1000 ml; Site: right antecubital; eh3 18:30 Follow up: IV Status: Completed infusion; IV Intake: 1000ml eh3 19:16 Drug: NS 0.9% 1000 ml Route: IV; Rate: 1 bolus; Site: right antecubital; ha1 19:59 Follow up: Response: No adverse reaction; IV Status: Infusion continued; IV Intake: ha1 500ml Medication: 18:47 VIS not applicable for this client. eh3 Intake: 17:11 IV: 1000ml; Total: 1000ml. eh3 18:30 IV: 1000ml; Total: 2000ml. eh3 18:30 IV: 100ml; Total: 2100ml. eh3 18:30 IV: 200ml; Total: 2300ml. eh3 19:59 IV: 500ml; Total: 2800ml. ha1 Outcome: 16:50 Decision to Hospitalize by Provider. kb 19:57 Admitted to Med/surg accompanied by tech, via stretcher, room 221, with chart, Report ha1 called to CALEB Appiah 19:57 Condition: stable 19:57 Discharge instructions given to patient, Instructed on the need for admit, Demonstrated understanding of instructions. 20:00 Patient left the ED. ha1 Signatures: Dispatcher [employer] EDMS Donna Burch, CHICO LYONP-Kalen CovingtonaBhavani mr De La Rosaon, Jaquelin, RN RN aa5 Kathie Mathew RN RN hb Jeanne Browning RN RN 3 Nilda Sharma, RN RN ha1
--- NOTE | 2022-10-16 16:50 | EDPHYS ---
Physician Documentation [facility] Name: Raz Reeves Age: 27 yrs Sex: Male : 1995 Arrival Date: 10/16/2022 Time: 15:14 Bed 19 Private MD: ED Physician Cody Burrell HPI: 10/16 16:13 This 27 yrs old Male presents to ER via Ambulatory with complaints of kb Diarrhea, Vomiting. 16:13 The patient presents to the emergency department with nausea, vomiting, diarrhea, kb abdominal pain. Onset: The symptoms/episode began/occurred yesterday. Possible causes: unknown. The symptoms are aggravated by nothing. The symptoms are alleviated by nothing. Associated signs and symptoms: Pertinent positives: abdominal pain, diarrhea, fever, nausea, vomiting. Severity of symptoms: At their worst the symptoms were moderate in the emergency department the symptoms are unchanged. The patient has not experienced similar symptoms in the past. The patient has not recently seen a physician. Historical: - Allergies: 15:18 No Known Allergies; hb - Immunization history:: Adult Immunizations unknown. - Social history:: Smoking status: unknown. ROS: 16:12 Respiratory: Negative for shortness of breath, cough, wheezing, and pleuritic chest kb pain. 16:12 Constitutional: Positive for fever. 16:12 Abdomen/GI: Positive for abdominal pain, nausea, vomiting, and diarrhea. 16:12 Neuro: Positive for headache. 16:12 All other systems are negative. kb Exam: 16:10 Constitutional: This is a well developed, well nourished patient who is awake, alert, kb and in no acute distress. Head/Face: Normocephalic, atraumatic. ENT: Moist Mucous membranes Cardiovascular: Regular rate and rhythm with a normal S1 and S2. No gallops, murmurs, or rubs. No pulse deficits. Respiratory: Respirations even and unlabored. No increased work of breathing. Talking in full sentences Skin: Warm, dry with normal turgor. Normal color. MS/ Extremity: Pulses equal, no cyanosis. Neurovascular intact. Full, normal range of motion. Neuro: Awake and alert, GCS 15, oriented to person, place, time, and situation. Moves all extremities. Normal gait. Psych: Awake, alert, with orientation to person, place and time. Behavior, mood, and affect are within normal limits. 16:10 ECG was reviewed by the Attending Physician. 16:10 Abdomen/GI: Inspection: abdomen appears normal, Bowel sounds: normal, Palpation: soft, in all quadrants, mild abdominal tenderness, in the left upper quadrant and left lower quadrant. Vital Signs: 15:16 BP 119 / 52; Pulse 107; Resp 24; Temp 101.2(TE); Pulse Ox 100% on R/A; Weight 97.52 kg; hb Height 6 ft. 1 in. (185.42 cm); Pain 8/10; 15:30 BP 104 / 48; Pulse 91; Resp 18; Pulse Ox 99% on R/A; eh3 16:30 BP 102 / 51; Pulse 92; Resp 18; Pulse Ox 99% on R/A; eh3 16:46 Temp 98.8(O); eh3 17:30 BP 99 / 43; Pulse 86; Resp 15; Pulse Ox 100% on R/A; eh3 18:30 BP 93 / 42; Pulse 70; Resp 19; Pulse Ox 98% on R/A; eh3 19:17 BP 92 / 36; Pulse 74; Resp 18 S; Pulse Ox 98% on R/A; ha1 15:16 Body Mass Index 28.36 (97.52 kg, 185.42 cm) hb MDM: 15:18 Patient medically screened. kb 16:14 Differential diagnosis: Nonspecific abd pain, diverticulitis, viral gastroenteritis. kerry Data reviewed: vital signs, nurses notes. Independent interpretation of the following test(s) in the Emergency Department EKG: See my EKG interpretation above. ED course: Patient is a 27-year-old male who presents for nausea, vomiting, diarrhea, headache, fever and abdominal pain that started yesterday at approximately 8 PM. On exam patient has mild tenderness to left lower and upper quadrants. Serum labs and CT scan ordered.. 16:48 Management of patient was discussed with the following: Hospitalist: Dr Feldman. kerry Counseling: I had a detailed discussion with the patient and/or guardian regarding: the historical points, exam findings, and any diagnostic results supporting the discharge/admit diagnosis, lab results, radiology results, the need for further work-up and treatment in the hospital. 16:49 Management of patient was discussed with the following: Dr Burrell, recommends kb admission. 10/16 15:18 Order name: Blood Culture Adult (2) kerry 10/16 15:18 Order name: CBC with Diff; Complete Time: 15:58 kb 10/16 15:18 Order name: CMP; Complete Time: 16:13 kb 10/16 15:18 Order name: Lactate w/ 2H reflex if indic.; Complete Time: 16:13 kb 10/16 15:18 Order name: Protime (+inr); Complete Time: 16:02 kb 10/16 15:18 Order name: Ptt, Activated; Complete Time: 16:02 kb 10/16 15:18 Order name: COVID-19/FLU A+B; Complete Time: 16:46 kb 10/16 15:23 Order name: CT Abd/Pelvis - IV Contrast Only; Complete Time: 16:36 kb 10/16 16:29 Order name: Glucose, Ancillary Testing; Complete Time: 16:29 EDMS 10/16 16:50 Order name: Stool Culture kb 10/16 16:59 Order name: Urine Dipstick-Ancillary; Complete Time: 17:01 EDMS 10/16 15:18 Order name: EKG; Complete Time: 15:19 kb 10/16 15:18 Order name: Accucheck; Complete Time: 16:17 kb 10/16 15:18 Order name: Cardiac monitoring; Complete Time: 16:00 kb 10/16 15:18 Order name: EKG - Nurse/Tech; Complete Time: 16:00 kb 10/16 15:18 Order name: IV Saline Lock - Large Bore; Complete Time: 15:46 kb 10/16 15:18 Order name: Labs collected and sent; Complete Time: 15:46 kb 10/16 15:18 Order name: O2 Per Protocol; Complete Time: 15:46 kb 10/16 15:18 Order name: O2 Sat Monitoring; Complete Time: 15:46 kb 10/16 15:18 Order name: Urine Dipstick-Ancillary (obtain specimen); Complete Time: 17:00 kb 10/16 15:18 Order name: Vital Signs; Complete Time: 16:00 kb EC:10 Rate is 97 beats/min. Rhythm is regular. QRS [place] is Normal. WI interval is normal at kb 140 msec. QRS interval is normal at 92 msec. QT interval is normal at 452 msec. Administered Medications: 15:23 CANCELLED (Other Intervention Used): Motrin (ibuprofen) 800 mg PO once kb 15:46 Drug: Tylenol 1000 mg Route: PO; aa5 16:46 Follow up: Temp 98.8 Oral; Response: Temperature is decreased eh3 15:50 Drug: NS 0.9% 1000 ml Route: IV; Rate: 1000 ml; Site: right antecubital; aa5 17:11 Follow up: IV Status: Completed infusion; IV Intake: 1000ml eh3 15:50 Drug: Zofran (Ondansetron) 4 mg Route: IVP; Site: right antecubital; aa5 16:46 Follow up: Response: Nausea is decreased eh3 17:05 Drug: Flagyl (metroNIDAZOLE) 500 mg Volume: 100 ml; Route: IVPB; Rate: 200 ml/hr; eh3 Infused Over: 30 mins; Site: right antecubital; 18:30 Follow up: Response: No adverse reaction; IV Status: Completed infusion; IV Intake: eh3 100ml 17:05 Drug: Ketorolac 15 mg Route: IVP; Site: right antecubital; eh3 18:00 Follow up: Response: Pain is unchanged, physician notified 3 17:15 Drug: Cipro (ciprofloxacin) 400 mg Volume: 200 ml; Route: IVPB; Infused Over: 60 mins; eh3 Site: right antecubital; 18:30 Follow up: Response: No adverse reaction; IV Status: Completed infusion; IV Intake: eh3 200ml 17:15 Drug: NS 0.9% 1000 ml Route: IV; Rate: 1000 ml; Site: right antecubital; eh3 18:30 Follow up: IV Status: Completed infusion; IV Intake: 1000ml 3 19:16 Drug: NS 0.9% 1000 ml Route: IV; Rate: 1 bolus; Site: right antecubital; ha1 19:59 Follow up: Response: No adverse reaction; IV Status: Infusion continued; IV Intake: ha1 500ml Disposition Summary: 10/16/22 16:50 Hospitalization Ordered Hospitalization Status: Observation kb Provider: Benjie Feldman Location: Telemetry/MedSurg (observation) kb Condition: Stable kb Problem: new kb Symptoms: are unchanged kb Bed/Room Type: Standard Room Assignment: 221(10/16/22 18:34) dw Diagnosis - Pancolitis kb Forms: - Medication Reconciliation Form kb - SBAR form kb Signatures: Dispatcher [employer] EDDonna Linares, CONSULTING PROJECT DIRECTOR-C CONSULTING PROJECT DIRECTOR-Aixa Begum, RN RN dw Jaquelin Cespedes, RN RN aa5 Kathie Mathew RN RN Jeanne Browning, RN RN eh3 Nilda Sharma, RN RN ha1 Sirisha Daniel, PA-C PA-C sb4 Corrections: (The following items were deleted from the chart) 15:23 15:18 Motrin (ibuprofen) 800 mg PO once ordered. kb kb 18:34 16:50 kb dw
[2022-10-16 16:59] LABS: Urine Blood Negative (Negative); Urine Glucose Negative (Negative); Urine Protein 1+ (Negative); Urine pH 8.5 (5.0-7.0)
[2022-10-16] MEDS ORDERED: KETOROLAC 30 MG/ML INJ ONE (17:05)
[2022-10-16] MEDS ORDERED: CIPROFLOXACIN 400mg IV 400 MG/200 ML BAG IV ONE (17:06)
[2022-10-16] MEDS ORDERED: METRONIDAZOLE 500mg IVPB 500 MG/100 ML BAG IV ONE (17:06)
--- NOTE | 2022-10-16 18:25 | P.HP ---
Certification for Inpatient Patient admitted to: Observation With expected LOS: <2 Midnights Patient will require the following post-hospital care: None Practitioner: I am a practitioner with admitting privileges, knowledge of patient current condition, hospital course, and medical plan of care. Services: Services provided to patient in accordance with Admission requirements found in Title 42 Section 412.3 of the Code of Federal Regulations Patient History Date of Service: 10/16/22 Primary Care Provider: Neftali Law Reason for admission: Pancolitis History of Present Illness: Patient is a 27-year-old male who presented to the emergency department with complaints of 2 days of nausea, vomiting, diarrhea, abdominal pain, and headache. He is sexually active with another male. He was noted to be weak and pale upon arrival. Blood pressure borderline low. No significant lab abnormalities. CT showed "pancolitis with differential to include infectious and inflammatory etiologies. No bowel obstruction. No appendicitis." Urine with 4+ ketones. He was given 2 L of fluid, Toradol, Zofran, and started on Cipro and Flagyl in the emergency department. ED provider wishes admit patient for further management. Allergies No Known Allergies Allergy (Unverified 09/11/17 05:42) - Past Medical/Surgical History Past Medical History: Patient denies medical history -: Gastric Sleeve Psychosocial/ Personal History: Patient lives at home with his boyfriend. - Family History Family History: Reviewed- Non-Contributory - Social History Smoking Status: Never smoker Alcohol use: Yes CD- Drugs: No Caffeine use: Yes Place of Residence: Home Review of Systems General: Other (Headache) Gastrointestinal: Nausea, Vomiting, Abdominal Pain, Diarrhea Physical Examination - Vital Signs Temperature: 98.8 F Blood Pressure: 99/43 Pulse: 86 Respirations: 15 Pulse Ox (%): 100 - Physical Exam General: Alert, In no apparent distress HEENT: Atraumatic, EOMI, Sclerae nonicteric Neck: Supple, 2+ carotid pulse no bruit Respiratory: Clear to auscultation bilaterally, Normal air movement Cardiovascular: Regular rate/rhythm, Normal S1 S2 Gastrointestinal: Normal bowel sounds, No tenderness Musculoskeletal: No tenderness Integumentary: No rashes Neurological: Normal speech, Normal affect - Studies Laboratory Data (last 24 hrs) 10/16/22 15:44: PT 13.2 H, INR 1.20, APTT 29.8 10/16/22 15:44: Sodium 136, Potassium 3.6, BUN 11, Creatinine 1.24, Glucose 126 H, Total Bilirubin 0.9, AST 151 H, ALT 40, Alkaline Phosphatase 39 L 10/16/22 15:44: WBC 5.50, Hgb 13.2 L, Hct 38.9 L, Plt Count 181 Assessment and Plan - Problems (Diagnosis) (1) Pancolitis Current Visit: Yes Status: Acute - Plan Patient is admitted for observation, for further management of pancolitis. Continue IV hydration and IV antibioticsCipro and Flagyl. Stool cultures obtained. Antiemetics PRN. Monitor and replete electrolytes per protocol. Discharge Plan: Home Plan to discharge in: 24 Hours - Advance Directives Does patient have a Living Will: No Does patient have a Durable POA for Healthcare: No - Code Status/Comfort Care Code Status Assessed: Yes Code Status: Full Code Physician Review: Patient Assessed, Agree with Above Assessment and Plan Critical Care: No Time Spent Managing Pts Care (In Minutes): 50
[2022-10-16 18:31] VITALS: BMI 28.3
[2022-10-16] MEDS ORDERED: ONDANSETRON 4 MG/2 ML VIAL IV PRN (18:48)
[2022-10-16] MEDS: NA CHLORIDE 0.9% 1,000 ML IV SCH (19:00)
[2022-10-16] MEDS ORDERED: MORPHINE 2 MG/ML SYR ONE (19:55)
[2022-10-16] MEDS: ACETAMINOPHEN 500 MG TAB PO PRN (20:00)
[2022-10-16] MEDS: CIPROFLOXACIN 400mg IV 400 MG/200 ML BAG IV SCH ×2 (20:54→21:00)
[2022-10-16] MEDS ORDERED: CIPROFLOXACIN 400mg IV 400 MG/200 ML BAG IV SCH (21:00)
[2022-10-16] MEDS: MORPHINE 2 MG/ML SYR IV PRN (21:18)
--- NOTE | 2022-10-16 22:33 | P.INFCA ---
Sepsis Focused Assessment - Focused Assessment Complete? Sepsis Focused Assessment Completed?: Yes - Sepsis Screen Result Severe Sepsis: Negative Septic Shock: Negative - Evaluation Current stage of sepsis: Resolved - Vital Signs Reviewed: Yes Temperature: 98.2 F Heart rate: 80 Blood Pressure: 147/97 Respiratory Rate: 16 O2 Sat by Pulse Oximetry: 100 - Examination Comments: Sepsis reassessment completed.
[2022-10-17] MEDS: METRONIDAZOLE 500mg IVPB 500 MG/100 ML BAG IV SCH ×3 (00:57→16:48)
[2022-10-17 04:02] LABS: Absolute Lymphocytes (CBC) 0.5 K/uL (0.7-4.9); Hematocrit 33.9 % (39.6-49.0); Lymphocytes % 14.5 % (15.3-44.8); MCV 87.2 fL (80-100); MPV 10.6 fL (7.6-11.3); RBC Red Blood Cell Count 3.88 M/uL (4.33-5.43)
[2022-10-17] MEDS: ACETAMINOPHEN 500 MG TAB PO PRN (04:11)
[2022-10-17] MEDS: NA CHLORIDE 0.9% 1,000 ML IV SCH ×2 (04:12→16:48)
[2022-10-17] MEDS: MORPHINE 2 MG/ML SYR IV PRN ×2 (04:13→09:37)
[2022-10-17 04:15] LABS: Albumin 3.2 g/dL (3.4-5.0); Bilirubin Total 0.7 mg/dL (0.2-1.0); Magnesium 1.5 mg/dL (1.6-2.4); Phosphorus 2.8 mg/dL (2.5-4.9)
[2022-10-17] MEDS ORDERED: Magnesium Sulfate 2gm IVPB 2 G/50 ML BAG IV ONE (05:09)
[2022-10-17] MEDS: METHYLPREDNISOLONE 125 MG INJ IV SCH ×2 (05:35→12:13)
[2022-10-17 08:45] LABS: C.diff Antigen/Toxin Ag neg : Tox neg (NEG : NEG)
[2022-10-17] MEDS: CIPROFLOXACIN 400mg IV 400 MG/200 ML BAG IV SCH ×2 (08:50→21:07)
[2022-10-17] MEDS ORDERED: CIPROFLOXACIN 400mg IV 400 MG/200 ML BAG IV SCH (09:00)
[2022-10-17] MEDS ORDERED: LOPERAMIDE HCL 2 MG CAPSULE PO PRN (15:22)
[2022-10-17] MEDS ORDERED: LOPERAMIDE HCL 2 MG CAPSULE PO STA (15:35)
[2022-10-17] MEDS ORDERED: FENTANYL CITR 100 MCG/2 ML IV ONE (15:35)
[2022-10-17 16:05] LABS: Absolute Lymphocytes (CBC) 0.4 K/uL (0.7-4.9); Hematocrit 36.9 % (39.6-49.0); Lymphocytes % 8.1 % (15.3-44.8); MCV 87.7 fL (80-100); MPV 9.9 fL (7.6-11.3); RBC Red Blood Cell Count 4.21 M/uL (4.33-5.43)
[2022-10-17 16:34] LABS: Albumin 3.5 g/dL (3.4-5.0); Bilirubin Total 0.5 mg/dL (0.2-1.0); Potassium 4.6 mmol/L (3.5-5.1); Protein, Total 6.7 g/dL (6.4-8.2)
[2022-10-17 17:25] LABS: Hepatitis B Core IgM Nonreactive (Nonreactive); Hepatitis B surface AG Interp. Nonreactive (Nonreactive); Hepatitis C Virus Ab Nonreactive (Nonreactive)
[2022-10-17] MEDS ORDERED: KETOROLAC 30 MG/ML INJ IV ONE (17:30)
--- NOTE | 2022-10-17 17:55 | P.PN ---
Date of Service: 10/17/22 Subjective Patient continues to have numerous bouts of diarrhea. He states he had an yesterday and he has had 6-7 today. Diarrhea is not slowing down. CT scan showed pancolitis. Patient is having severe pain and needing intravenous medications. He is not wanting to eat and he is severely depleted hydration fuentes so we will continue with aggressive IV hydration. Patient denies any new complaints. Studies are pending Physical Examination - Vital Signs Reviewed - Physical Exam General: Alert, In no apparent distress Respiratory: Clear to auscultation bilaterally, Normal air movement Cardiovascular: Regular rate/rhythm, Normal S1 S2 Gastrointestinal: Normal bowel sounds, No tenderness Musculoskeletal: No tenderness Neurological: Normal speech, Normal affect Assessment and Plan - Problems (Diagnosis) (1) Pancolitis- persistent diarrhea Current Visit: Yes Status: Acute - Plan Inpatient hospitalization Continue with antibiotic therapy Continue with antidiarrheal medications Outpatient colonoscopy Stool studies are pending Aggressive IV hydration Antiemetics Monitor and replete electrolytes per protocol.
[2022-10-17] MEDS: FENTANYL CITR 100 MCG/2 ML IV PRN (21:18)
[2022-10-17 23:04] VITALS: O2SAT 100
[2022-10-18] MEDS: METRONIDAZOLE 500mg IVPB 500 MG/100 ML BAG IV SCH ×3 (01:04→18:39)
[2022-10-18] MEDS: NA CHLORIDE 0.9% 1,000 ML IV SCH ×2 (05:04→11:00)
[2022-10-18 06:36] LABS: Absolute Lymphocytes (CBC) 0.9 K/uL (0.7-4.9); Hematocrit 36.2 % (39.6-49.0); Lymphocytes % 12.8 % (15.3-44.8); MCV 87.7 fL (80-100); MPV 9.8 fL (7.6-11.3); RBC Red Blood Cell Count 4.13 M/uL (4.33-5.43)
[2022-10-18 06:39] LABS: Protime INR 1.05
[2022-10-18 06:51] LABS: Albumin 3.2 g/dL (3.4-5.0); Bilirubin Total 0.3 mg/dL (0.2-1.0); Magnesium 2.1 mg/dL (1.6-2.4); Potassium 4.9 mmol/L (3.5-5.1); Protein, Total 6.4 g/dL (6.4-8.2)
[2022-10-18] MEDS: FENTANYL CITR 100 MCG/2 ML IV PRN (07:03)
[2022-10-18] MEDS: CIPROFLOXACIN 400mg IV 400 MG/200 ML BAG IV SCH ×2 (09:12→21:08)
[2022-10-18] MEDS ORDERED: FAMOTIDINE 20 MG/2 ML VIAL IV PRN (09:40)
[2022-10-18] MEDS ORDERED: CODEINE 30MG/APAP 300MG TAB PO PRN (18:28)
--- NOTE | 2022-10-18 18:33 | P.PN ---
Subjective Date of Service: 10/18/22 Primary Care Provider: [facility] Chief Complaint: Pancolitis No acute events overnight. He reports that his diarrhea is improving with the loperamide. He reports having 3 loose bowel movements overnight. He denies any nausea/vomiting, hematochezia, or melena. Review of Systems 10-point ROS is otherwise unremarkable Gastrointestinal: Diarrhea Physical Examination - Vital Signs Temperature: 97.4 F Blood Pressure: 120/60 Pulse: 62 Respirations: 14 Pulse Ox (%): 98 - Physical Exam General: Alert, In no apparent distress, Oriented x3 HEENT: Atraumatic, Mucous membr. moist/pink, EOMI, Sclerae nonicteric Neck: JVD not distended Respiratory: Clear to auscultation bilaterally, Normal air movement Cardiovascular: No edema, Regular rate/rhythm, Normal S1 S2, No gallops, No rubs, No murmurs Gastrointestinal: Non-distended, No masses, No rebound, Hyperactive, Tenderness (minimal, generalized) Musculoskeletal: No clubbing Integumentary: No rashes Neurological: Normal speech, Normal affect Assessment And Plan - Plan # Sepsis likely secondary to Infectious Pancolitis # Elevated LFTs He met sepsis criteria based on temperature > 100.9 F, HR > 90 bpm, and RR > 20 breaths/min, and the suspected source is intra-abdominal. - Consulted Gastroenterology and spoke with Dr. Liu - recommendations appreciated - Sepsis order set was initiated - Initial Lactate was 1.1 - Procalcitonin = 0.52 - Blood cultures drawn before antibiotics were given - Broad spectrum antibiotics started: Ciprofloxacin + Metronidaozle - In regards to fluids: - 30 mL/kg of IV Normal Saline was given based on patient's actual body weight - Viral hepatitis/HIV screen negative - C. Difficile stool toxin negative - RUQ ultrasound requested Rene Yates M.D.
--- NOTE | 2022-10-18 18:44 | EKG ---
Test Date: 2022-10-16 Test Time: 15:59:15 Nuclear Radiologist: GENA MEASUREMENT RESULTS: Intervals: Rate: 97 TX: 140 QRSD: 92 QT: 356 QTc: 452 [place]: P: 39 TX: 140 QRS: 8 T: 0 INTERPRETIVE STATEMENTS: Normal sinus rhythm Normal ECG No previous ECG available for comparison Electronically Signed On 10-18-22 18:40:34 [employer] by Jayme Gallego
[2022-10-19] MEDS: METRONIDAZOLE 500mg IVPB 500 MG/100 ML BAG IV SCH ×2 (00:45→09:00)
[2022-10-19 04:00] LABS: Albumin 2.9 g/dL (3.4-5.0); Bilirubin Total 0.2 mg/dL (0.2-1.0); Potassium 4.2 mmol/L (3.5-5.1); Protein, Total 5.7 g/dL (6.4-8.2)
[2022-10-19] MEDS: CIPROFLOXACIN 400mg IV 400 MG/200 ML BAG IV SCH (09:00)
--- NOTE | 2022-10-19 11:02 | RAD REPORT ---
EXAM DESCRIPTION: US - Abdomen Exam Limited - 10/19/2022 12:03 am CLINICAL HISTORY: elevated liver enzymes COMPARISON: Abdomen Pelvis W Contrast dated 10/16/2022 FINDINGS: The gallbladder demonstrates no shadowing gallstones. A nonmobile 4 millimeter focus is s een along the wall near the neck, suggesting a small polyp. No pericholecystic fluid or gallbladder w all thickening. The common bile duct is normal measuring 4 mm. The liver demonstrates no findings of intrahepatic biliary dilatation. Mild diffuse parenchymal hepat ic hyperechogenicity, suggesting mild steatosis. Trace right infrahepatic ascites. Spleen is within normal limits in size, measuring 11 centimeter, without focal lesions. IMPRESSION: Mild diffuse hepatic steatosis. Small gallbladder polyp near the neck, without evidence of wall thickening or cholelithiasis. Trace right intrahepatic ascites.
[2022-10-19 12:37] VITALS: BP 121/56; TEMP 97.6
--- NOTE | 2022-10-19 13:34 | P.DS ---
Admission Date: 10/17/22 Discharge Date: 10/19/22 Primary Care Provider: Neftali Law Disposition: ROUTINE DISCHARGE Discharge Condition: GOOD Reason for Admission: Pancolitis Consultations: 1. Gastroenterology Hospital Course: DIAGNOSES: # Sepsis likely secondary to Infectious Pancolitis # Mild Hepatic Steatosis HOSPITAL COURSE: Mr. Raz Reeves is a 27 year old male with no reported past medical history significant who was admitted to the [facility] on 10/16/2022 for abdominal pain, nausea, vomiting, and diarrhea. He was admitted to the Medicine service. Upon further evaluation, he was found to meet sepsis criteria. His CT abdomen/pelvis revealed, "pancolitis with differential to include infectious and inflammatory etiologies. No bowel obstruction. No appendicitis." He was also noted to have elevated LFTs, so a right upper quadrant ultrasound was obtained, which revealed, "mild diffuse hepatic steatosis. Small gallbladder polyp near the neck, without evidence of wall thickening or cholelithiasis. Trace right intrahepatic ascites." Gastroenterology was consulted and he was evaluated by Dr. Liu. This morning, he stated that he felt well and would like to be discharged home. His nausea/vomiting and diarrhea have completed resolved. Dr. Liu has cleared him for discharge with outpatient colonoscopy. He was notified of the incidental gallbladder polyp and advised to follow-up with General Surgery for further evaluation. He was provided the office contact information for Dr. Crawley, and he agreed to make this appointment. On 10/19/2022, he was seen on rounds and deemed medically stable for discharge. He was discharged with instructions to schedule follow-up appointments with his PCP (Neftali Law), with Gastroenterology (Dr. Liu), and with General Surgery (Dr. Crawley). He was provided prescriptions for ciprofloxacin and metronidazole. He was given the opportunity to ask questions and reported no further questions. Furthermore, all questions were answered to the best of my ability. A copy of this discharge summary will be sent to the above providers to facilitate continuity of care. Today, I personally spent 25 minutes on his case, of which greater than 50% of the time was spent in patient education, counseling, and coordination of care as described above. - Physical Exam General: Alert, In no apparent distress, Oriented x3 HEENT: Atraumatic, EOMI, Sclerae nonicteric Neck: JVD not distended Respiratory: Clear to auscultation bilaterally, Normal air movement Cardiovascular: No edema, Regular rate/rhythm, No murmurs Gastrointestinal: Non-distended, No masses, No rebound, Normoactive bowel sounds, No tenderness Musculoskeletal: No clubbing Integumentary: No rashes Neurological: Normal speech, Normal affect Vital Signs/Physical Exam: Temp Pulse Resp BP Pulse Ox 97.6 F 64 18 121/56 L 98 10/19/22 12:00 10/19/22 12:00 10/19/22 12:00 10/19/22 12:00 10/19/22 12:00 Laboratory Data at Discharge: WBC 7.10 K/uL (4.3-10.9) 10/18/22 06:16 Hgb 12.2 g/dL (13.6-17.9) L 10/18/22 06:16 Hct 36.2 % (39.6-49.0) L 10/18/22 06:16 Plt Count 168 K/uL (152-406) 10/18/22 06:16 PT 11.5 SECONDS (9.5-12.5) 10/18/22 06:16 INR 1.05 10/18/22 06:16 APTT 30.2 SECONDS (24.3-36.9) 10/18/22 06:16 Sodium 142 mmol/L (136-145) 10/19/22 03:16 Potassium 4.2 mmol/L (3.5-5.1) D 10/19/22 03:16 BUN 8 mg/dL (7-18) 10/19/22 03:16 Creatinine 0.99 mg/dL (0.70-1.30) 10/19/22 03:16 Glucose 105 mg/dL (74-106) 10/19/22 03:16 Phosphorus 2.8 mg/dL (2.5-4.9) 10/17/22 03:02 Magnesium 2.1 mg/dL (1.6-2.4) 10/18/22 06:16 Total Bilirubin 0.2 mg/dL (0.2-1.0) 10/19/22 03:16 AST 49 U/L (15-37) H 10/19/22 03:16 ALT 42 U/L (16-61) 02/28/23 03:16 Alkaline Phosphatase 30 U/L (45-117) L 10/19/22 03:16 Physician Discharge Instructions: 1. Please call and schedule a follow-up appointment with your PCP (Neftali Law) in 3-5 days 2. Please call and schedule a follow-up appointment with Gastroenterology (Dr. Liu) in 5-7 days - He will schedule you for a colonoscopy as an outpatient 3. Please call and schedule a follow-up appointment with General Surgery (Dr. Crawley) in 1-2 weeks - You have a small polyp on your gallbladder, which carries a risk of turning into gallbladder cancer. Please discuss this at your appointment Diet: AHA Activity: Ad fabiano Followup: Jose Alberto Crawley MD [ACTIVE - CAN ADMIT] - Braydon Liu MD [ASSOCIATE-ACTIVE - CAN ADMIT] - Time spent managing pt's care (in minutes): 25
== END 2022-10-19 15:06 | disposition home or self-care (01) | DRG 871 ==
LOC: ER 15:12 → ERHOLD 18:18 → OBSVTOIN 18:18 → INTOOBSV 18:18 → 2ND 18:45 → OBSVTOIN 10-17 17:56
PROVIDERS: ADMIT Hospitalist; ATTEND Internal Medicine
DX: A41.9 Sepsis, unspecified organism (principal); R65.21 Severe sepsis with septic shock; K51.00 Ulcerative (chronic) pancolitis without complications; K76.0 Fatty (change of) liver, not elsewhere classified; Z20.822 Contact with and (suspected) exposure to COVID-19
CPT/HCPCS: 0240U; 36415; 74177; 76705; 80053; 80074; 81003; 82947; 83605; 83735; 84100; 84145; 85025; 85610; 85730; 86021; 86036; 86671; 87040; 87045; 87046; 87324; 87389; 89055; 93005; 96361; 96365; 96375; 99285; G0378; J0744; J2270; J2405; J2930; J3010; J3475; J7030; Q9967